=== PATIENT | female | born 1960 | race Caucasian/White ===

== ENCOUNTER 2021-02-07 14:40 | Outpatient (REF) | payer BC, SELFPAY ==
[2021-02-07 18:45] LABS: Alanine Aminotransferase 32 U/L (0-31); Albumin Level 4.1 g/dL (3.5-5.0); Alkaline Phosphatase 85 U/L (39-117); Anion Gap 13 (12-20); Aspartate Amino Transferase 20 U/L (5-31); Bilirubin Total 0.4 mg/dL (0.0-1.0); Blood Urea Nitrogen 20 mg/dL (9-16); C Reactive Protein 0.95 mg/dL (< or = 0.50); Calcium 9.3 mg/dL (8.4-10.2); Carbon Dioxide 29 mmol/L (22-29); Chloride 102 mmol/L (96-108); Estimated Glomerular Filt Rate > 60; Glucose Random 92 mg/dL (60-115); Iron 73 mcg/dL (30-160); Percent Iron Saturation 27 % (15-50); Potassium 4.1 mmol/L (3.3-5.1); Sodium 140 mmol/L (135-145); Total Iron Binding Capacity 273 mcg/dL (228-428); Total Protein 6.8 g/dL (6.5-8.0); Unsaturated Iron Binding 200 ug/dL
[2021-02-07 19:07] LABS: Ferritin 234 ng/mL (10-250); Free T4 (Free Thyroxine) 0.97 ng/dL (0.71-1.85); Thyroid Stimulating Hormone 0.56 uIU/mL (0.32-4.0); Vitamin D 25-OH Total 19.7 ng/mL (>30)
[2021-02-07 19:16] LABS: Folate 5.3 ng/mL (> or = 4.0); Vitamin B12 386 pg/mL (200-900)
[2021-02-07 19:32] LABS: Erythrocyte Sedimentation Rate 12 MM/HR (0-20)
== END 2021-02-07 14:41 | disposition home or self-care (01) ==
LOC: HO.MANLDS 14:40
PROVIDERS: PCP Internal Medicine; Visit Provider Physician Assistant
DX: R53.83 Other fatigue (principal)
CPT/HCPCS: 36415; 80053; 82306; 82607; 82728; 82746; 83540; 84439; 84443; 85652; 86140

== ENCOUNTER 2023-02-18 13:33 | Outpatient (REF) | payer BC, SELFPAY ==
[2023-02-18 19:29] LABS: Free T4 (Free Thyroxine) 0.99 ng/dL (0.71-1.85); Thyroid Stimulating Hormone 0.62 uIU/mL (0.32-4.0); Vitamin D 25-OH Total 25.9 ng/mL (>30)
[2023-02-18 19:45] LABS: Insulin 8 uU/mL (2-29)
== END 2023-02-18 13:34 | disposition home or self-care (01) ==
LOC: HO.MANLDS 13:33
PROVIDERS: Visit Provider Physician Assistant
DX: E66.3 Overweight (principal); E55.9 Vitamin D deficiency, unspecified
CPT/HCPCS: 36415; 82306; 83525; 84439; 84443

== ENCOUNTER 2024-01-14 11:13 | Outpatient (REF) | payer BC, SELFPAY ==
[2024-01-14 13:21] LABS: Appearance Urine Clear; Color Urine Yellow; Glucose Urine UA Negative (Negative); Leukocyte Esterase Urine Trace (Negative); Nitrite Urine Negative (Negative); UMIC TRIGGER UACC YES; Urine Blood Trace (Negative); Urine Ketones Negative (Negative); Urine Protein Negative (Neg-Trace)
[2024-01-14 13:24] LABS: MANUAL DIFF FLAG NO
[2024-01-14 13:27] LABS: Bacteria Urine None Seen (None Seen); Hyaline Casts Urine 0-2 /LPF (0-2); Squamous Epithelial Cell Urine 0-2 /HPF (0-2); WBC Urine 0-5 /HPF (0-5)
[2024-01-14 13:28] LABS: Basophils Percent Auto 0.6 % (0-2); Eosinophils Percent Auto 0.6 % (0-4); Hematocrit 40.7 % (37.0-47.0); Hemoglobin 14.2 g/dl (12.0-16.0); Imm Gran Abs Auto 0.01 X10*3/uL (0.00-0.03); Imm Gran Pct Auto 0.2 % (0.0-0.4); Lymphocytes Absolute Auto 2.2 X10*3/uL (1.2-4.9); Lymphocytes Percent Auto 45.2 % (20-40); Mean Corpuscular HGB Conc 34.9 g/dl (31.0-35.0); Mean Corpuscular Hemoglobin 31.3 pg (27.0-33.0); Mean Corpuscular Volume 89.6 fL (80.0-98.0); Mean Platelet Volume 8.8 fL (9.4-12.3); Monocytes Absolute Auto 0.4 X10*3/uL (0.1-1.2); Monocytes Percent Auto 7.3 % (2-11); Neutrophils Absolute Auto 2.2 x10*3/uL (2.0-8.3); Neutrophils Percent Auto 46.1 % (45-73); Platelet Count 218 X10*3/uL (160-400); Red Blood Count 4.54 X10*6/uL (4.20-5.50); Red Cell Distribution Width 11.8 % (11.0-16.0); White Blood Count 4.8 X10*3/uL (4.8-10.8)
[2024-01-14 13:50] LABS: Parathyroid Hormone Intact 75.4 pg/mL (8.7-77.1)
[2024-01-14 13:52] LABS: Osmolality, Serum 285 mosm/kg (281-305)
[2024-01-14 14:05] LABS: Estimated Average Glucose 105 mg/dL; Hemoglobin A1c % 5.3 % (<6.0); Rheumatoid Factor < 13.0 IU/mL (<15.0)
[2024-01-14 14:09] LABS: Erythrocyte Sedimentation Rate 10 MM/HR (0-20)
[2024-01-14 14:21] LABS: Alanine Aminotransferase 22 U/L (0-31); Alkaline Phosphatase 86 U/L (39-117); Anion Gap 10 (12-20); Aspartate Amino Transferase 20 U/L (5-31); Bilirubin Total 0.2 mg/dL (0.0-1.0); Blood Urea Nitrogen 14 mg/dL (9-16); C Reactive Protein 0.55 mg/dL (< or = 0.50); Calcium 9.3 mg/dL (8.4-10.2); Carbon Dioxide 26 mmol/L (22-29); Chloride 106 mmol/L (96-108); Estimated Glomerular Filt Rate > 60; Glucose Random 85 mg/dL (60-115); Sodium 138 mmol/L (135-145); Total Protein 6.9 g/dL (6.5-8.0)
[2024-01-14 14:27] LABS: Free T4 (Free Thyroxine) 0.87 ng/dL (0.71-1.85); Thyroid Stimulating Hormone 0.69 uIU/mL (0.32-4.0); Vitamin D 25-OH Total 40.9 ng/mL (>30)
[2024-01-14 14:34] LABS: Vitamin B12 329 pg/mL (200-900)
[2024-01-15 13:28] LABS: Thyroid Peroxidase Antibodies <1 IU/mL (<9)
[2024-01-19 15:03] LABS: Anti Nuclear Antibody Screen NEGATIVE (NEGATIVE)
== END 2024-01-14 11:14 | disposition home or self-care (01) ==
LOC: HO.MANLDS 11:13
PROVIDERS: Visit Provider Physician Assistant
DX: R25.2 Cramp and spasm (principal); R63.1 Polydipsia; R53.83 Other fatigue; M35.3 Polymyalgia rheumatica
CPT/HCPCS: 36415; 80053; 81001; 82306; 82550; 82607; 82746; 83036; 83735; 83930; 83970; 84439; 84443; 85025; 85652; 86038; 86140; 86376; 86431

== ENCOUNTER 2024-02-13 16:13 | Outpatient (REF) | payer BC, SELFPAY ==
[2024-02-16 19:08] LABS: Lyme Abs Screen <0.90 index
[2024-02-18 18:38] LABS: A. Phagocytophilum Ab IgG <1:64 (<1:64); A. Phagocytophilum Ab IgM <1:20 (<1:20); E. Chaffeensis Ab IgG <1:64 (<1:64); E. Chaffeensis Ab IgM <1:20 (<1:20)
== END 2024-02-13 16:14 | disposition home or self-care (01) ==
LOC: HO.MANLDS 16:13
PROVIDERS: Visit Provider Physician Assistant
DX: R53.83 Other fatigue (principal)
CPT/HCPCS: 36415; 86617; 86618; 86666